=== PATIENT | male | born 1955 | race African-American/Black ===

== ENCOUNTER 2020-01-31 08:19 | Outpatient (CLI) | payer OTHER, SELFPAY ==
--- NOTE | ~2020-01-31 | CT_ITS ---
EXAMINATION: CT chest abdomen pelvis w con DATE: 01/31/2020 09:21 INDICATION: Colorectal cancer TECHNIQUE: Computed tomography (CT) of the chest, abdomen, and pelvis was performed with 100 cc Omnip aque 350 intravenous contrast. Automated exposure control and iterative reconstruction technique were employed. Exam dose: 1740.92 mGy-cm total exam DLP. COMPARISON: None FINDINGS: CHEST CT: There is thyromegaly with substernal extension on the left. Multiple nonenlarged mediastinal lymph nodes. No hilar mass lesion or lymphadenopathy. Heart size is at upper limits of normal. Coronary artery calcifications. No pericardial effusion. The ascending thoracic aorta measures up to 3.8 cm diameter. Mid aortic arch measures 3.0 cm diameter . The posterior aspect of the thoracic aortic arch measures up to 3.7 cm diameter. Descending thoraci c aorta measures within upper normal limits. No pulmonary infiltrate or consolidation or pulmonary mass lesion is evident. ABDOMEN/PELVIS CT: There is diffuse hepatic steatosis. No hepatic space-occupying mass lesion is evident. Status post cholecystectomy. No bile duct or pancreatic duct dilatation. Pancreatic atrophy. No pancreatic mass lesion or calcification. Normal splenic size. Normal morphology of the adrenal glands. 3.0 and approximately 1.2 cm probable right renal cysts. No other renal space occupying mass lesion i s evident. No urinary tract calculus or hydroureteronephrosis. The urinary bladder is unremarkable. T here is moderate prostate enlargement. No abdominal aortic aneurysm. No intraperitoneal or retroperitoneal or pelvic mass lesion or adenopat hy or ascites. Small bilateral fat-containing inguinal hernias. Normal appendix. There is a left colostomy with peristomal fat herniation. No bowel obstruction or intraperitoneal mansoor e air. No suspicious osteolytic or osteoblastic lesions. IMPRESSION: Up to 3.8 cm thoracic aortic aneurysm Borderline heart size; coronary artery calcifications Thyromegaly Status post cholecystectomy Right renal cysts Status post left colostomy; peristomal fat herniation Reviewed, dictated and finalized at [facility]. Reviewed, dictated and finalized at [facility].
[2020-01-31 09:14] LABS: Estimated Glomerular Filt Rate > 60
[2020-01-31 09:25] LABS: Basophils Percent Auto 0.5 % (0.2-1.2); Eosinophils Absolute Auto 0.1 K/mm3 (0-0.3); Hematocrit 44.8 % (42.0-52.0); Hemoglobin 13.9 g/dL (14.0-18.0); Immature Granulocyte Absolute 0.01 K/mm3 (0.00-0.031); Immature Granulocyte Percent A 0.2 % (0-0.5); Lymphocytes Absolute Auto 2.34 K/mm3 (0.9-3.2); Lymphocytes Percent Auto 35.3 % (18.3-44.2); Mean Corpuscular Hemoglobin 28.3 pg (26-34); Mean Corpuscular Volume 91.2 fl (80-100); Mean Platelet Volume 10.1 fl (7.4-10.4); Monocytes Absolute Auto 0.6 K/mm3 (0.1-0.6); Monocytes Percent Auto 8.6 % (2.6-8.5); Neutrophils Absolute Auto 3.6 K/mm3 (1.3-6.7); Neutrophils Percent Auto 53.4 % (45.5-73.1); Platelet Count Result 221 k/mm3 (150-375); Red Blood Count 4.91 M/mm3 (4.6-6.20); Red Cell Distribution Width 13.3 % (11.5-14.5); White Blood Count 6.6 K/mm3 (4.5-10.0)
[2020-01-31 09:26] LABS: Alanine Aminotransferase 23 U/L (4-50); Albumin Level 4.3 g/dL (3.5-5.1); Alkaline Phosphatase 57 U/L (38-126); Aspartate Amino Transferase 28 U/L (17-59); Blood Urea Nitrogen 12 mg/dL (9-20); Calcium 8.7 mg/dL (8.4-10.2); Carbon Dioxide 27 mmol/L (22-30); Chloride 101 mmol/L (98-107); Estimated Glomerular Filt Rate > 60; Glucose 204 mg/dL (75-110); Lactate Dehydrogenase 506 U/L (313-618); Potassium 3.2 mmol/L (3.4-5.0); Sodium 137 mmol/L (137-145)
== END 2020-01-31 08:20 | disposition home or self-care (01) ==
PROVIDERS: PCP Internal Medicine; Visit Provider Internal Medicine
DX: C20 Malignant neoplasm of rectum (principal); I71.2 Thoracic aortic aneurysm, without rupture; I51.5 Myocardial degeneration; N28.1 Cyst of kidney, acquired; E04.9 Nontoxic goiter, unspecified; Z90.49 Acquired absence of other specified parts of digestive tract
CPT/HCPCS: 36415; 71260; 74177; 80053; 83615; 85025; Q9967